=== PATIENT | female | born 1955 | race Caucasian/White ===

== ENCOUNTER 2016-10-21 10:22 | Outpatient (RCR) | payer OTHER ==
--- OUTSIDE RECORDS SUMMARY | 2016-10-07 09:34 | XMS REPORT | Continuity of Care Document ---
Author Author [facility] Organization [facility] Address Unknown Phone Unavailable Allergies Active Description Code Type Severity Reaction Onset Reported/Identified Relationship to Patient Clinical Status Yes codeine [id number] Drug Allergy Unknown N/A 01/15/2011 Yes Erythromycin Base [id number] Drug Allergy Unknown N/A 01/15/2011 Yes morphine [id number] Drug Allergy Unknown N/A 01/15/2011 Yes valdecoxib [id number] Drug Allergy Unknown N/A 01/15/2011 Yes midazolam HCl [id number] Drug Allergy Severe deep sedation 04/28/2012 Medications Problems Date Dx Coded Attending Type Code Diagnosis Diagnosed By 06/26/2014 TRINA HOYOS N Ot 205.10 06/26/2014 SOHA, BOBAN N Ot 288.60 06/26/2014 SOHA, BOBAN N Ot 403.90 06/26/2014 SOHA, BOBAN N Ot 530.81 06/26/2014 SOHA, BOBAN N Ot 585.3 06/26/2014 SOHA, BOBAN N Ot V58.69 10/04/2014 SOHA, BOBAN N Ot 205.10 10/04/2014 SOHA, BOBAN N Ot 288.60 10/04/2014 SOHA, BOBAN N Ot 403.90 10/04/2014 SOHA, BOBAN N Ot 530.81 10/04/2014 SOHA, BOBAN N Ot 585.3 10/04/2014 SOHA, BOBAN N Ot V58.69 10/07/2014 SOHA, BOBAN N Ot 205.10 10/07/2014 SOHA, BOBAN N Ot 288.60 10/07/2014 SOHA, BOBAN N Ot 403.90 10/07/2014 SOHA, BOBAN N Ot 530.81 10/07/2014 SOHA, BOBAN N Ot 585.3 10/07/2014 SOHA, BOBAN N Ot V58.69 10/07/2014 SOHA, BOBAN N Ot 205.10 10/07/2014 SOHA, BOBAN N Ot 288.60 10/07/2014 SOHA, BOBAN N Ot 403.90 10/07/2014 SOHA, BOBAN N Ot 530.81 10/07/2014 SOHA, BOBAN N Ot 585.3 10/07/2014 SOHA, BOBAN N Ot V58.69 11/07/2014 Ot 205.10 11/07/2014 Ot 288.60 11/07/2014 Ot 403.90 11/07/2014 Ot 530.81 11/07/2014 Ot 585.3 11/07/2014 Ot V58.69 11/12/2014 SOHA, BOBAN N Ot 205.10 11/12/2014 SOHA, BOBAN N Ot 288.60 11/12/2014 SOHA, BOBAN N Ot 403.90 11/12/2014 SOHA, BOBAN N Ot 530.81 11/12/2014 SOHA, BOBAN N Ot 585.3 11/12/2014 SOHA, BOBAN N Ot V58.69 11/12/2014 SOHA, BOBAN N Ot 205.10 11/12/2014 SOHA, BOBAN N Ot 288.60 11/12/2014 SOHA, BOBAN N Ot 403.90 11/12/2014 SOHA, BOBAN N Ot 530.81 11/12/2014 SOHA, BOBAN N Ot 585.3 11/12/2014 SOHA, BOBAN N Ot V58.69 01/02/2015 SOHA, BOBAN N Ot 205.10 01/02/2015 SOHA, BOBAN N Ot 288.60 01/02/2015 SOHA, BOBAN N Ot 403.90 01/02/2015 SOHA, BOBAN N Ot 530.81 01/02/2015 SOHA, BOBAN N Ot 585.3 01/02/2015 SOHA, BOBAN N Ot V58.69 04/04/2015 SOHA, BOBAN N Ot 205.10 04/04/2015 SOHA, BOBAN N Ot 288.60 04/04/2015 SOHA, BOBAN N Ot 403.90 04/04/2015 SOHA, BOBAN N Ot 530.81 04/04/2015 SOHA, BOBAN N Ot 585.3 04/04/2015 SOHA, BOBAN N Ot V58.69 05/14/2015 SOHA, TRINA N Ot 205.10 05/14/2015 SOHA, BOBAN N Ot 288.60 05/14/2015 SOHA, BOBAN N Ot 403.90 05/14/2015 SOHA, BOBAN N Ot 530.81 05/14/2015 SOHA, MIMIAN N Ot 585.3 05/14/2015 SOHATRINA N Ot V58.69 07/25/2015 ELIANE GIBBS WIRE WALKER Ot C92.10 07/25/2015 ELIANE GIBBS WIRE WALKER Ot Z79.899 08/01/2015 SOHATRINA N Ot 205.10 08/01/2015 SOHA, MIMIAN N Ot 288.60 08/01/2015 SOHA, TRINA N Ot 403.90 08/01/2015 SOHA BOBCLOVIS N Ot 530.81 08/01/2015 SOHATRINA N Ot 585.3 08/01/2015 SOHATRINA N Ot V58.69 09/05/2015 SOHA, BOBAN N Ot C92.10 09/05/2015 SOHA, BOBAN N Ot Z79.899 09/22/2015 SOHA, BOBAN N Ot C92.10 09/22/2015 SOHA, BOBAN N Ot Z79.899 09/23/2015 SOHA, BOBAN N Ot C92.10 09/23/2015 SOHA, BOBAN N Ot Z79.899 12/21/2015 SOHA, BOBAN N Ot C92.10 CHRONIC MYELOID LEUK, BCR/ABL-POSITIVE, 12/21/2015 SOHA, BOBAN N Ot Z79.899 OTHER [facility] (CURRENT) DRUG THERAPY 03/29/2016 SOHA, BOBAN N Ot C92.10 CHRONIC MYELOID LEUK, BCR/ABL-POSITIVE, 03/29/2016 SOHA, BOBAN N Ot Z79.899 OTHER COMMERCIAL SUBCONTRACTOR (CURRENT) DRUG THERAPY 03/30/2016 ALTA CARDENAS MD, Ot C92.11 CHRONIC MYELOID LEUKEMIA, BCR/ABL-POSITI 03/30/2016 ALTA CARDENAS MD Ot E78.2 MIXED HYPERLIPIDEMIA 03/30/2016 ALTA CARDENAS MD, Ot I10 ESSENTIAL (PRIMARY) HYPERTENSION 03/30/2016 RONALD GARCIA, ALTA Storm Ot R07.9 CHEST PAIN, UNSPECIFIED 04/06/2016 SOHATRINA N Ot C92.10 CHRONIC MYELOID LEUK, BCR/ABL-POSITIVE, 04/06/2016 SOHATRINA N Ot Z79.899 OTHER [facility] (CURRENT) DRUG THERAPY 07/04/2016 SOHATRINA N Ot C92.10 CHRONIC MYELOID LEUK, BCR/ABL-POSITIVE, 07/04/2016 SOHATRINA N Ot I12.9 HYPERTENSIVE CHRONIC KIDNEY DISEASE W ST 07/04/2016 SOHA BOBCLOVIS N Ot K21.9 GASTRO-ESOPHAGEAL REFLUX DISEASE WITHOUT 07/04/2016 SOHA, BOBAN N Ot N18.9 CHRONIC KIDNEY DISEASE, UNSPECIFIED 07/04/2016 SOHA BOBCLOVIS N Ot Z79.899 OTHER [facility] (CURRENT) DRUG THERAPY 07/10/2016 SOHATRINA N Ot C92.10 CHRONIC MYELOID LEUK, BCR/ABL-POSITIVE, 07/10/2016 SOHATRINA N Ot I12.9 HYPERTENSIVE CHRONIC KIDNEY DISEASE W ST 07/10/2016 SOHATRINA N Ot K21.9 GASTRO-ESOPHAGEAL REFLUX DISEASE WITHOUT 07/10/2016 SOHA BOBCLOVIS N Ot N18.9 CHRONIC KIDNEY DISEASE, UNSPECIFIED 07/10/2016 SOHA BOBCLOVIS N Ot Z79.899 OTHER [facility] (CURRENT) DRUG THERAPY Procedures Results Encounters ACCT No. Visit Date/Time Discharge Status Pt. Type Provider Facility Loc./Unit Complaint [id number] 04/22/2016 10:51:00 2015 00:01:00 DIS Outpatient TRINA HOYOS N [facility] ONC [id number] 10/08/2015 09:55:00 2015 00:01:00 DIS Outpatient SOHA TRINA N [facility] ONC [id number] 06/30/2015 09:20:00 2015 10:53:00 DIS Outpatient SOHA TRINA N [facility] ONC [id number] 07/08/2015 10:54:00 2014 23:59:59 CLS Outpatient ELIANE GIBBS [facility] ONC [id number] 04/17/2015 10:04:00 2014 00:01:00 DIS Outpatient TRINA HOYOS [facility] ONC [id number] 10/16/2014 09:50:00 2014 00:01:00 DIS Outpatient TRINA HOYOS [facility] ONC [id number] 04/17/2014 09:57:00 2013 00:01:00 DIS Outpatient TRINA HOYOS [facility] ONC [id number] 12/05/2013 10:17:00 2013 00:01:00 DIS Outpatient [id number] 12/24/2013 11:00:00 2013 23:59:59 CLS Outpatient [id number] 09/19/2013 09:51:00 2013 00:01:00 DIS Outpatient [id number] 06/13/2013 11:02:00 2012 23:59:59 CLS Outpatient [id number] 06/13/2013 09:53:00 2012 23:59:59 CLS Outpatient [id number] 03/14/2013 11:31:00 2012 00:01:00 DIS Outpatient [id number] 04/23/2013 10:38:00 2012 23:59:59 CLS Outpatient [id number] 12/06/2012 10:53:00 2012 00:01:00 DIS Outpatient [id number] 07/05/2016 00:08:00 PEN Preadmit TRINA HOYOS [facility] ONC [id number] 03/29/2016 11:48:00 ACT Outpatient RONALD GARCIA, ALTA Storm [facility] CARD CHEST PAIN SYNDROME,HTN,HLP,LEUKEMIA [id number] 10/16/2014 08:56:00 Document Registration
[2016-10-07 10:03] LABS: BASOPHILS % (AUTO) 0 % (0-10); EOSINOPHILS # (AUTO) 0.2 10^3/uL (0.0-0.3); EOSINOPHILS % (AUTO) 3 % (0-10); LYMPHOCYTES # (AUTO) 2.2 X 10^3 (1.0-4.0); LYMPHOCYTES % (AUTO) 27 % (12-44); MEAN CORPUSCULAR HEMOGLOBIN 29 PG (25-34); MEAN CORPUSCULAR HGB CONC 34 G/DL (32-36); MEAN CORPUSCULAR VOLUME 85 FL (80-99); MEAN PLATELET VOLUME 10.1 FL (7.4-10.4); MONOCYTES # (AUTO) 0.6 X 10^3 (0.0-1.0); MONOCYTES % (AUTO) 8 % (0-12); NEUTROPHILS % (AUTO) 62 % (42-75); PLATELET COUNT 228 10^3/uL (130-400); RED BLOOD COUNT 4.63 10^6/uL (4.35-5.85); RED CELL DISTRIBUTION WIDTH 14.2 % (10.0-14.5); WHITE BLOOD COUNT 8.1 10^3/uL (4.3-11.0)
[2016-10-07 10:58] LABS: ALANINE AMINOTRANSFERASE 13 U/L (0-55); ALBUMIN 4.3 G/DL (3.2-4.5); ANION GAP 10 MMOL/L (5-14); ASPARTATE AMINO TRANSFERASE 13 U/L (5-34); BILIRUBIN,TOTAL 0.8 MG/DL (0.1-1.0); BLOOD UREA NITROGEN 10 MG/DL (7-18); BUN/CREATININE RATIO 11; CALCIUM 8.9 MG/DL (8.5-10.1); CARBON DIOXIDE 25 MMOL/L (21-32); CHLORIDE 105 MMOL/L (98-107); CREATININE SERUM 0.93 MG/DL (0.60-1.30); GFR ESTIMATED > 60; GLUCOSE 130 MG/DL (70-105); LACTATE DEHYDROGENASE 202 U/L (125-220); SODIUM 140 MMOL/L (135-145); TOTAL PROTEIN 7.2 G/DL (6.4-8.2)
[2016-10-12 08:07] LABS: BCR ABL GENE QT SEE FOOTNOTE
[~2016-10-21 10:22] MED LIST: ALLP300T PO; AMLO1CAP5 PO; BUDE6HFA IH; GUAI100L2 PO; LEVO500T69 PO; LVF500T PO; NF-HYD500C PO; TOPI50TA2 PO
== END 2017-01-05 | disposition home or self-care (01) ==
LOC: ONC 10:22
PROVIDERS: ATTEND Internal Medicine Hematology & Oncology
DX: C92.10 Chronic myeloid leukemia, BCR/ABL-positive, not having achieved remission (principal); I12.9 Hypertensive chronic kidney disease with stage 1 through stage 4 chronic kidney disease, or unspecified chronic kidney disease; N18.9 Chronic kidney disease, unspecified; K21.9 Gastro-esophageal reflux disease without esophagitis; Z79.899 Other long term (current) drug therapy
CPT/HCPCS: 36415; 80053; 81206; 83615; 85025; 99213

== ENCOUNTER 2017-04-28 14:44 | Outpatient (RCR) | payer OTHER ==
[2017-04-07 11:01] LABS: BASOPHILS % (AUTO) 0 % (0-10); EOSINOPHILS # (AUTO) 0.2 10^3/uL (0.0-0.3); EOSINOPHILS % (AUTO) 3 % (0-10); LYMPHOCYTES # (AUTO) 1.9 X 10^3 (1.0-4.0); LYMPHOCYTES % (AUTO) 30 % (12-44); MEAN CORPUSCULAR HEMOGLOBIN 30 PG (25-34); MEAN CORPUSCULAR HGB CONC 34 G/DL (32-36); MEAN CORPUSCULAR VOLUME 87 FL (80-99); MEAN PLATELET VOLUME 10.4 FL (7.4-10.4); MONOCYTES # (AUTO) 0.6 X 10^3 (0.0-1.0); MONOCYTES % (AUTO) 9 % (0-12); NEUTROPHILS # (AUTO) 3.9 X 10^3 (1.8-7.8); NEUTROPHILS % (AUTO) 59 % (42-75); PLATELET COUNT 227 10^3/uL (130-400); RED BLOOD COUNT 4.41 10^6/uL (4.35-5.85); RED CELL DISTRIBUTION WIDTH 14.1 % (10.0-14.5); WHITE BLOOD COUNT 6.6 10^3/uL (4.3-11.0)
[2017-04-07 11:35] LABS: ALANINE AMINOTRANSFERASE 17 U/L (0-55); ALBUMIN 4.3 GM/DL (3.2-4.5); ANION GAP 9 MMOL/L (5-14); ASPARTATE AMINO TRANSFERASE 17 U/L (5-34); BILIRUBIN,TOTAL 0.8 MG/DL (0.1-1.0); BLOOD UREA NITROGEN 9 MG/DL (7-18); BUN/CREATININE RATIO 10; CALCIUM 9.2 MG/DL (8.5-10.1); CARBON DIOXIDE 25 MMOL/L (21-32); CHLORIDE 106 MMOL/L (98-107); CREATININE SERUM 0.87 MG/DL (0.60-1.30); GFR ESTIMATED > 60; GLUCOSE 134 MG/DL (70-105); LACTATE DEHYDROGENASE 180 U/L (125-220); POTASSIUM 3.8 MMOL/L (3.6-5.0); SODIUM 140 MMOL/L (135-145); TOTAL PROTEIN 7.3 GM/DL (6.4-8.2)
[2017-04-12 17:51] LABS: BCR ABL GENE QT See Report
== END 2017-05-14 | disposition home or self-care (01) ==
LOC: ONC 14:44
PROVIDERS: ATTEND Internal Medicine Hematology & Oncology
DX: I12.9 Hypertensive chronic kidney disease with stage 1 through stage 4 chronic kidney disease, or unspecified chronic kidney disease; C92.10 Chronic myeloid leukemia, BCR/ABL-positive, not having achieved remission; K21.9 Gastro-esophageal reflux disease without esophagitis; Z79.899 Other long term (current) drug therapy; N18.9 Chronic kidney disease, unspecified
CPT/HCPCS: 36415; 80053; 81206; 83615; 85025; 99213

== ENCOUNTER 2017-07-28 09:34 | Outpatient (RCR) | payer OTHER ==
[2017-07-14 10:03] LABS: BASOPHILS % (AUTO) 0 % (0-10); EOSINOPHILS # (AUTO) 0.2 10^3/uL (0.0-0.3); EOSINOPHILS % (AUTO) 2 % (0-10); HEMATOCRIT 40 % (35-52); HEMOGLOBIN 13.3 G/DL (11.5-16.0); LYMPHOCYTES # (AUTO) 2.1 X 10^3 (1.0-4.0); LYMPHOCYTES % (AUTO) 25 % (12-44); MEAN CORPUSCULAR HEMOGLOBIN 29 PG (25-34); MEAN CORPUSCULAR HGB CONC 33 G/DL (32-36); MEAN CORPUSCULAR VOLUME 87 FL (80-99); MEAN PLATELET VOLUME 10.5 FL (7.4-10.4); MONOCYTES # (AUTO) 0.7 X 10^3 (0.0-1.0); MONOCYTES % (AUTO) 8 % (0-12); NEUTROPHILS # (AUTO) 5.4 X 10^3 (1.8-7.8); NEUTROPHILS % (AUTO) 65 % (42-75); PLATELET COUNT 214 10^3/uL (130-400); RED BLOOD COUNT 4.58 10^6/uL (4.35-5.85); RED CELL DISTRIBUTION WIDTH 13.9 % (10.0-14.5); WHITE BLOOD COUNT 8.3 10^3/uL (4.3-11.0)
[2017-07-14 10:23] LABS: ALANINE AMINOTRANSFERASE 15 U/L (0-55); ALBUMIN 4.2 GM/DL (3.2-4.5); ALKALINE PHOSPHATASE 78 U/L (40-136); BILIRUBIN,TOTAL 0.8 MG/DL (0.1-1.0); BUN/CREATININE RATIO 13; CALCIUM 8.5 MG/DL (8.5-10.1); CARBON DIOXIDE 26 MMOL/L (21-32); CHLORIDE 104 MMOL/L (98-107); CREATININE SERUM 0.88 MG/DL (0.60-1.30); GFR ESTIMATED > 60; GLUCOSE 186 MG/DL (70-105); POTASSIUM 3.8 MMOL/L (3.6-5.0); SODIUM 138 MMOL/L (135-145)
== END 2017-10-12 | disposition home or self-care (01) ==
LOC: ONC 09:34
PROVIDERS: ATTEND Internal Medicine Hematology & Oncology
DX: C92.10 Chronic myeloid leukemia, BCR/ABL-positive, not having achieved remission (principal); I12.9 Hypertensive chronic kidney disease with stage 1 through stage 4 chronic kidney disease, or unspecified chronic kidney disease; N18.9 Chronic kidney disease, unspecified; R53.83 Other fatigue; K21.9 Gastro-esophageal reflux disease without esophagitis; Z79.899 Other long term (current) drug therapy
CPT/HCPCS: 36415; 80053; 81206; 83615; 84443; 85025; 93005; 99213

== ENCOUNTER 2017-12-01 08:49 | Outpatient (RCR) | payer OTHER ==
[2017-11-17 10:19] LABS: BASOPHILS % (AUTO) 0 % (0-10); EOSINOPHILS # (AUTO) 0.1 10^3/uL (0.0-0.3); EOSINOPHILS % (AUTO) 2 % (0-10); HEMATOCRIT 40 % (35-52); HEMOGLOBIN 13.5 G/DL (11.5-16.0); LYMPHOCYTES % (AUTO) 26 % (12-44); MEAN CORPUSCULAR HEMOGLOBIN 30 PG (25-34); MEAN CORPUSCULAR HGB CONC 34 G/DL (32-36); MEAN CORPUSCULAR VOLUME 88 FL (80-99); MEAN PLATELET VOLUME 10.3 FL (7.4-10.4); MONOCYTES # (AUTO) 0.7 X 10^3 (0.0-1.0); MONOCYTES % (AUTO) 9 % (0-12); NEUTROPHILS # (AUTO) 4.7 X 10^3 (1.8-7.8); NEUTROPHILS % (AUTO) 63 % (42-75); PLATELET COUNT 234 10^3/uL (130-400); RED CELL DISTRIBUTION WIDTH 14.3 % (10.0-14.5); WHITE BLOOD COUNT 7.4 10^3/uL (4.3-11.0)
[2017-11-17 10:49] LABS: ALANINE AMINOTRANSFERASE 15 U/L (0-55); ALBUMIN 4.4 GM/DL (3.2-4.5); ALKALINE PHOSPHATASE 76 U/L (40-136); BILIRUBIN,TOTAL 0.8 MG/DL (0.1-1.0); BUN/CREATININE RATIO 10; CALCIUM 9.2 MG/DL (8.5-10.1); CARBON DIOXIDE 26 MMOL/L (21-32); CHLORIDE 105 MMOL/L (98-107); CREATININE SERUM 0.86 MG/DL (0.60-1.30); GFR ESTIMATED > 60; GLUCOSE 157 MG/DL (70-105); POTASSIUM 3.9 MMOL/L (3.6-5.0); SODIUM 139 MMOL/L (135-145); TOTAL PROTEIN 7.2 GM/DL (6.4-8.2)
== END 2018-02-15 | disposition home or self-care (01) ==
LOC: ONC 08:49
PROVIDERS: ATTEND Internal Medicine Hematology & Oncology
DX: C92.10 Chronic myeloid leukemia, BCR/ABL-positive, not having achieved remission (principal); I12.9 Hypertensive chronic kidney disease with stage 1 through stage 4 chronic kidney disease, or unspecified chronic kidney disease; N18.9 Chronic kidney disease, unspecified; R53.83 Other fatigue; K21.9 Gastro-esophageal reflux disease without esophagitis; Z79.899 Other long term (current) drug therapy
CPT/HCPCS: 36415; 80053; 81206; 83036; 84443; 85025; 99213

== ENCOUNTER 2018-06-08 08:49 | Outpatient (RCR) | payer OTHER ==
[2018-05-25 11:05] LABS: BASOPHILS % (AUTO) 0 % (0-10); EOSINOPHILS # (AUTO) 0.2 10^3/uL (0.0-0.3); EOSINOPHILS % (AUTO) 2 % (0-10); HEMATOCRIT 41 % (35-52); HEMOGLOBIN 13.8 G/DL (11.5-16.0); LYMPHOCYTES % (AUTO) 25 % (12-44); MEAN CORPUSCULAR HEMOGLOBIN 29 PG (25-34); MEAN CORPUSCULAR HGB CONC 34 G/DL (32-36); MEAN CORPUSCULAR VOLUME 86 FL (80-99); MEAN PLATELET VOLUME 10.2 FL (7.4-10.4); MONOCYTES # (AUTO) 0.8 X 10^3 (0.0-1.0); MONOCYTES % (AUTO) 10 % (0-12); NEUTROPHILS # (AUTO) 5.2 X 10^3 (1.8-7.8); NEUTROPHILS % (AUTO) 64 % (42-75); PLATELET COUNT 249 10^3/uL (130-400); RED CELL DISTRIBUTION WIDTH 14.3 % (10.0-14.5); WHITE BLOOD COUNT 8.2 10^3/uL (4.3-11.0)
[2018-05-25 11:25] LABS: ALANINE AMINOTRANSFERASE 16 U/L (0-55); ALBUMIN 4.6 GM/DL (3.2-4.5); ALKALINE PHOSPHATASE 85 U/L (40-136); BILIRUBIN,TOTAL 0.8 MG/DL (0.1-1.0); BUN/CREATININE RATIO 10; CALCIUM 9.3 MG/DL (8.5-10.1); CARBON DIOXIDE 23 MMOL/L (21-32); CHLORIDE 106 MMOL/L (98-107); CREATININE SERUM 0.98 MG/DL (0.60-1.30); GFR ESTIMATED 58; GLUCOSE 126 MG/DL (70-105); POTASSIUM 3.9 MMOL/L (3.6-5.0); SODIUM 138 MMOL/L (135-145); TOTAL PROTEIN 7.8 GM/DL (6.4-8.2)
== END 2018-08-23 | disposition home or self-care (01) ==
LOC: ONC 08:49
PROVIDERS: ATTEND Internal Medicine Hematology & Oncology
DX: C92.10 Chronic myeloid leukemia, BCR/ABL-positive, not having achieved remission (principal); I12.9 Hypertensive chronic kidney disease with stage 1 through stage 4 chronic kidney disease, or unspecified chronic kidney disease; N18.9 Chronic kidney disease, unspecified; R53.83 Other fatigue; K21.9 Gastro-esophageal reflux disease without esophagitis; Z79.899 Other long term (current) drug therapy
CPT/HCPCS: 36415; 80053; 81206; 84443; 85025; 93005; 99213

== ENCOUNTER 2018-11-30 08:50 | Outpatient (RCR) | payer OTHER ==
[2018-11-13 09:57] LABS: BASOPHILS % (AUTO) 0 % (0-10); EOSINOPHILS # (AUTO) 0.2 10^3/uL (0.0-0.3); EOSINOPHILS % (AUTO) 3 % (0-10); HEMATOCRIT 40 % (35-52); HEMOGLOBIN 13.4 G/DL (11.5-16.0); LYMPHOCYTES % (AUTO) 27 % (12-44); MEAN CORPUSCULAR HEMOGLOBIN 29 PG (25-34); MEAN CORPUSCULAR HGB CONC 33 G/DL (32-36); MEAN CORPUSCULAR VOLUME 87 FL (80-99); MEAN PLATELET VOLUME 9.9 FL (7.4-10.4); MONOCYTES # (AUTO) 0.7 X 10^3 (0.0-1.0); MONOCYTES % (AUTO) 9 % (0-12); NEUTROPHILS # (AUTO) 4.7 X 10^3 (1.8-7.8); NEUTROPHILS % (AUTO) 62 % (42-75); PLATELET COUNT 248 10^3/uL (130-400); RED CELL DISTRIBUTION WIDTH 14.4 % (10.0-14.5); WHITE BLOOD COUNT 7.6 10^3/uL (4.3-11.0)
[2018-11-13 10:13] LABS: ALBUMIN 4.5 GM/DL (3.2-4.5); BILIRUBIN,TOTAL 0.6 MG/DL (0.1-1.0); CALCIUM 9.6 MG/DL (8.5-10.1); CREATININE SERUM 1.09 MG/DL (0.60-1.30); TOTAL PROTEIN 7.7 GM/DL (6.4-8.2)
== END 2019-02-11 | disposition home or self-care (01) ==
LOC: ONC 08:50
PROVIDERS: ATTEND Internal Medicine Hematology & Oncology
DX: C92.10 Chronic myeloid leukemia, BCR/ABL-positive, not having achieved remission (principal); I12.9 Hypertensive chronic kidney disease with stage 1 through stage 4 chronic kidney disease, or unspecified chronic kidney disease; N18.9 Chronic kidney disease, unspecified; R53.83 Other fatigue; K21.9 Gastro-esophageal reflux disease without esophagitis; Z79.899 Other long term (current) drug therapy
CPT/HCPCS: 36415; 80053; 81206; 84443; 85025; 93005; 99213

== ENCOUNTER 2019-03-29 10:23 | Outpatient (RCR) | payer OTHER ==
[2019-03-15 10:50] LABS: BASOPHILS % (AUTO) 0 % (0-10); EOSINOPHILS # (AUTO) 0.2 10^3/uL (0.0-0.3); EOSINOPHILS % (AUTO) 2 % (0-10); HEMATOCRIT 40 % (35-52); HEMOGLOBIN 13.1 G/DL (11.5-16.0); LYMPHOCYTES # (AUTO) 2.1 X 10^3 (1.0-4.0); LYMPHOCYTES % (AUTO) 25 % (12-44); MEAN CORPUSCULAR HEMOGLOBIN 29 PG (25-34); MEAN CORPUSCULAR HGB CONC 33 G/DL (32-36); MEAN CORPUSCULAR VOLUME 87 FL (80-99); MEAN PLATELET VOLUME 10.3 FL (7.4-10.4); MONOCYTES # (AUTO) 0.7 X 10^3 (0.0-1.0); MONOCYTES % (AUTO) 8 % (0-12); NEUTROPHILS # (AUTO) 5.4 X 10^3 (1.8-7.8); NEUTROPHILS % (AUTO) 65 % (42-75); PLATELET COUNT 242 10^3/uL (130-400); RED CELL DISTRIBUTION WIDTH 14.5 % (10.0-14.5); WHITE BLOOD COUNT 8.3 10^3/uL (4.3-11.0)
[2019-03-15 11:20] LABS: ALANINE AMINOTRANSFERASE 14 U/L (0-55); ALBUMIN 4.3 GM/DL (3.2-4.5); ALKALINE PHOSPHATASE 79 U/L (40-136); BILIRUBIN,TOTAL 0.7 MG/DL (0.1-1.0); BUN/CREATININE RATIO 12; CALCIUM 9.2 MG/DL (8.5-10.1); CARBON DIOXIDE 23 MMOL/L (21-32); CHLORIDE 105 MMOL/L (98-107); CREATININE SERUM 0.93 MG/DL (0.60-1.30); GFR ESTIMATED > 60; GLUCOSE 157 MG/DL (70-105); POTASSIUM 3.9 MMOL/L (3.6-5.0); SODIUM 139 MMOL/L (135-145); TOTAL PROTEIN 7.2 GM/DL (6.4-8.2)
== END 2019-06-13 | disposition home or self-care (01) ==
LOC: ONC 10:23
PROVIDERS: ATTEND Internal Medicine Hematology & Oncology
DX: C92.10 Chronic myeloid leukemia, BCR/ABL-positive, not having achieved remission (principal); I12.9 Hypertensive chronic kidney disease with stage 1 through stage 4 chronic kidney disease, or unspecified chronic kidney disease; N18.9 Chronic kidney disease, unspecified; R53.83 Other fatigue; K21.9 Gastro-esophageal reflux disease without esophagitis; Z79.899 Other long term (current) drug therapy
CPT/HCPCS: 36415; 80053; 81206; 84443; 85025; 99213

== ENCOUNTER 2019-06-28 08:49 | Outpatient (RCR) | payer OTHER ==
[2019-06-14 11:24] LABS: BASOPHILS % (AUTO) 0 % (0-10); EOSINOPHILS # (AUTO) 0.2 10^3/uL (0.0-0.3); EOSINOPHILS % (AUTO) 2 % (0-10); HEMATOCRIT 42 % (35-52); HEMOGLOBIN 13.9 G/DL (11.5-16.0); LYMPHOCYTES # (AUTO) 2.6 X 10^3 (1.0-4.0); LYMPHOCYTES % (AUTO) 28 % (12-44); MEAN CORPUSCULAR HEMOGLOBIN 29 PG (25-34); MEAN CORPUSCULAR HGB CONC 33 G/DL (32-36); MEAN CORPUSCULAR VOLUME 86 FL (80-99); MEAN PLATELET VOLUME 10.3 FL (7.4-10.4); MONOCYTES # (AUTO) 0.6 X 10^3 (0.0-1.0); MONOCYTES % (AUTO) 7 % (0-12); NEUTROPHILS # (AUTO) 5.8 X 10^3 (1.8-7.8); NEUTROPHILS % (AUTO) 63 % (42-75); PLATELET COUNT 244 10^3/uL (130-400); RED CELL DISTRIBUTION WIDTH 14.3 % (10.0-14.5); WHITE BLOOD COUNT 9.2 10^3/uL (4.3-11.0)
[2019-06-14 11:46] LABS: ALBUMIN 4.4 GM/DL (3.2-4.5); BILIRUBIN,TOTAL 0.8 MG/DL (0.1-1.0); CALCIUM 9.2 MG/DL (8.5-10.1); CREATININE SERUM 1.03 MG/DL (0.60-1.30); POTASSIUM 4.1 MMOL/L (3.6-5.0); TOTAL PROTEIN 7.6 GM/DL (6.4-8.2)
== END 2019-09-12 | disposition home or self-care (01) ==
LOC: ONC 08:49
PROVIDERS: ATTEND Internal Medicine Hematology & Oncology
DX: C92.10 Chronic myeloid leukemia, BCR/ABL-positive, not having achieved remission (principal); I12.9 Hypertensive chronic kidney disease with stage 1 through stage 4 chronic kidney disease, or unspecified chronic kidney disease; N18.9 Chronic kidney disease, unspecified; R53.83 Other fatigue; K21.9 Gastro-esophageal reflux disease without esophagitis; Z79.899 Other long term (current) drug therapy
CPT/HCPCS: 36415; 80053; 81206; 85025; 99213

== ENCOUNTER 2019-10-18 12:46 | Outpatient (RCR) | payer OTHER ==
[2019-10-02 10:55] LABS: BASOPHILS % (AUTO) 0 % (0-10); EOSINOPHILS # (AUTO) 0.2 10^3/uL (0.0-0.3); EOSINOPHILS % (AUTO) 2 % (0-10); HEMATOCRIT 42 % (35-52); HEMOGLOBIN 14.2 G/DL (11.5-16.0); LYMPHOCYTES # (AUTO) 2.3 X 10^3 (1.0-4.0); LYMPHOCYTES % (AUTO) 30 % (12-44); MEAN CORPUSCULAR HEMOGLOBIN 29 PG (25-34); MEAN CORPUSCULAR HGB CONC 34 G/DL (32-36); MEAN CORPUSCULAR VOLUME 85 FL (80-99); MEAN PLATELET VOLUME 10.4 FL (7.4-10.4); MONOCYTES # (AUTO) 0.7 X 10^3 (0.0-1.0); MONOCYTES % (AUTO) 9 % (0-12); NEUTROPHILS # (AUTO) 4.6 X 10^3 (1.8-7.8); NEUTROPHILS % (AUTO) 59 % (42-75); PLATELET COUNT 225 10^3/uL (130-400); RED CELL DISTRIBUTION WIDTH 14.8 % (10.0-14.5); WHITE BLOOD COUNT 7.8 10^3/uL (4.3-11.0)
[2019-10-02 11:12] LABS: ALANINE AMINOTRANSFERASE 18 U/L (0-55); ALBUMIN 4.4 GM/DL (3.2-4.5); ALKALINE PHOSPHATASE 90 U/L (40-136); BILIRUBIN,TOTAL 0.8 MG/DL (0.1-1.0); BUN/CREATININE RATIO 11; CARBON DIOXIDE 23 MMOL/L (21-32); CHLORIDE 107 MMOL/L (98-107); CREATININE SERUM 0.93 MG/DL (0.60-1.30); GFR ESTIMATED > 60; GLUCOSE 198 MG/DL (70-105); POTASSIUM 3.9 MMOL/L (3.6-5.0); SODIUM 139 MMOL/L (135-145); TOTAL PROTEIN 7.3 GM/DL (6.4-8.2)
== END 2019-12-31 | disposition home or self-care (01) ==
LOC: ONC 12:46
PROVIDERS: ATTEND Internal Medicine Hematology & Oncology
DX: C92.10 Chronic myeloid leukemia, BCR/ABL-positive, not having achieved remission (principal); I12.9 Hypertensive chronic kidney disease with stage 1 through stage 4 chronic kidney disease, or unspecified chronic kidney disease; N18.9 Chronic kidney disease, unspecified; R53.83 Other fatigue; K21.9 Gastro-esophageal reflux disease without esophagitis; Z79.899 Other long term (current) drug therapy
CPT/HCPCS: 80053; 83615; 85025; 88377; 99213

== ENCOUNTER 2020-04-17 12:49 | Outpatient (RCR) | payer OTHER ==
[2020-04-03 10:51] LABS: BASOPHILS % (AUTO) 0 % (0-10); EOSINOPHILS # (AUTO) 0.2 10^3/uL (0.0-0.3); EOSINOPHILS % (AUTO) 2 % (0-10); HEMATOCRIT 41 % (35-52); LYMPHOCYTES # (AUTO) 2.7 X 10^3 (1.0-4.0); LYMPHOCYTES % (AUTO) 29 % (12-44); MEAN CORPUSCULAR HEMOGLOBIN 29 PG (25-34); MEAN CORPUSCULAR HGB CONC 34 G/DL (32-36); MEAN CORPUSCULAR VOLUME 86 FL (80-99); MEAN PLATELET VOLUME 10.5 FL (7.4-10.4); MONOCYTES # (AUTO) 0.8 X 10^3 (0.0-1.0); MONOCYTES % (AUTO) 9 % (0-12); NEUTROPHILS # (AUTO) 5.5 X 10^3 (1.8-7.8); NEUTROPHILS % (AUTO) 60 % (42-75); PLATELET COUNT 248 10^3/uL (130-400); WHITE BLOOD COUNT 9.2 10^3/uL (4.3-11.0)
[2020-04-03 11:13] LABS: ALBUMIN 4.3 GM/DL (3.2-4.5); BILIRUBIN,TOTAL 0.6 MG/DL (0.1-1.0); CALCIUM 9.1 MG/DL (8.5-10.1); CREATININE SERUM 0.96 MG/DL (0.60-1.30); TOTAL PROTEIN 7.5 GM/DL (6.4-8.2)
== END 2020-07-02 | disposition home or self-care (01) ==
LOC: ONC 12:49
PROVIDERS: ATTEND Internal Medicine Hematology & Oncology
DX: C92.11 Chronic myeloid leukemia, BCR/ABL-positive, in remission (principal); I12.9 Hypertensive chronic kidney disease with stage 1 through stage 4 chronic kidney disease, or unspecified chronic kidney disease; N18.9 Chronic kidney disease, unspecified; R53.83 Other fatigue; K21.9 Gastro-esophageal reflux disease without esophagitis; E78.2 Mixed hyperlipidemia; Z79.899 Other long term (current) drug therapy
CPT/HCPCS: 80053; 81206; 83615; 85025; 99213

== ENCOUNTER 2020-08-01 05:15 | Emergency (ER) | payer OTHER, MEDICARE ==
[~2020-08-01] VITALS: Ht 165 cm; Wt 79.3 kg
[2020-08-01 05:41] LABS: BASOPHILS % (AUTO) 0 % (0-10); EOSINOPHILS # (AUTO) 0.1 10^3/uL (0.0-0.3); EOSINOPHILS % (AUTO) 1 % (0-10); HEMATOCRIT 43 % (35-52); HEMOGLOBIN 14.3 g/dL (11.5-16.0); LYMPHOCYTES # (AUTO) 2.1 10^3/uL (1.0-4.0); LYMPHOCYTES % (AUTO) 25 % (12-44); MEAN CORPUSCULAR HEMOGLOBIN 30 pg (25-34); MEAN CORPUSCULAR HGB CONC 34 g/dL (32-36); MEAN CORPUSCULAR VOLUME 88 fL (80-99); MEAN PLATELET VOLUME 10.3 fL (9.0-12.2); MONOCYTES # (AUTO) 0.7 10^3/uL (0.0-1.0); MONOCYTES % (AUTO) 8 % (0-12); NEUTROPHILS # (AUTO) 5.5 10^3/uL (1.8-7.8); NEUTROPHILS % (AUTO) 65 % (42-75); PLATELET COUNT 221 10^3/uL (130-400); WHITE BLOOD COUNT 8.5 10^3/uL (4.3-11.0)
[2020-08-01] MEDS ORDERED: LACTATED RINGERS 1,000 ML IV ONE ×2 (05:45→13:45)
[2020-08-01] MEDS ORDERED: KETOROLAC 30 MG/ML VIAL IVP ONE (05:45)
[2020-08-01] MEDS ORDERED: ORPHENADRINE 60 MG/2 ML (NORFLEX) AMP (ED ONLY) IV ONE (05:45)
[2020-08-01] MEDS ORDERED: ONDANSETRON 4 MG/2 ML (SDV) Z0FRAN IVP ONE ×2 (05:45→13:00)
[2020-08-01 05:48] LABS: ALBUMIN 4.4 GM/DL (3.2-4.5); POTASSIUM 3.9 MMOL/L (3.6-5.0)
[2020-08-01 05:51] LABS: TOTAL PROTEIN 7.4 GM/DL (6.4-8.2)
[2020-08-01 05:53] LABS: BILIRUBIN,TOTAL 0.8 MG/DL (0.1-1.0)
[2020-08-01 05:54] LABS: CREATININE SERUM 0.94 MG/DL (0.60-1.30)
[2020-08-01 05:57] LABS: MAGNESIUM 1.9 MG/DL (1.6-2.4)
[2020-08-01] MEDS ORDERED: PROMETHAZINE INJ 25 MG/ML (PHENERGAN) AMP IVP ONE ×3 (06:00→15:45)
[2020-08-01] MEDS ORDERED: PROMETHAZINE INJ 25 MG/ML (PHENERGAN) AMP ONE (06:00)
--- NOTE | 2020-08-01 06:01 | ED Headache ---
General Chief Complaint: Head/Cervical Problems Stated Complaint: HEADACHE, VOMITTING,COUGH Nursing Triage Note: HEADACHE, N/V SINCE 0200 Nursing Sepsis Screen: No Definite Risk Source: patient Exam Limitations: no limitations (ROBERT CHENG MD) History of Present Illness Date Seen by Provider: Aug 01, 2020 Time Seen by Provider: 05:23 Initial Comments This 65-year-old woman presents to the emergency room with complaints of right- sided headache that starts at the base of her neck and wraps around toward her right eye. She has had associated nausea and vomiting. She denies any fever, new cough or shortness of breath, diarrhea, Covid exposures, or other symptoms of acute infectious illness. 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 She is also recently been treated for shingles on her right lower back. (ROBERT CHENG MD) Allergies and Home Medications Allergies Coded Allergies: codeine (Unverified Allergy, Unknown, 01/15/11) erythromycin base (Unverified Allergy, Unknown, 01/15/11) morphine (Unverified Allergy, Unknown, 01/15/11) valdecoxib (Unverified Allergy, Unknown, 01/15/11) midazolam HCl (Unverified Adverse Reaction, Severe, deep sedation, 04/28/12) Home Medications Allopurinol 300 Mg Tab, 300 MG PO DAILY, (Reported) Amlodipine Besylate/Benazepril 1 Each Capsule, 1 TAB PO DAILY, (Reported) Budesonide/Formoterol Fumarate 10.2 Gm Hfa.aer.ad, 2 PUFF IH BID, (Reported) Guaifenesin 100 Mg/5 Ml Liquid, 100 MG PO TID PRN, (Reported) Hydroxyurea 500 Mg Capsule, 500 MG PO BID, (Reported) Levofloxacin 500 Mg Tab, 1 EACH PO DAILY, (Reported) Topiramate 50 Mg Tablet, 2 TAB PO BID, (Reported) Patient Home Medication List Home Medication List Reviewed: Yes (ROBERT CHENG MD) Review of Systems Review of Systems Constitutional: no symptoms reported Eyes: Denies Blurred Vision; Pain Ears, Nose, Mouth, Throat: no symptoms reported Respiratory: cough (Chronic) Cardiovascular: no symptoms reported Gastrointestinal: see HPI Genitourinary: no symptoms reported : No Musculoskeletal: other (Muscle tension in the right neck musculature) Skin: see HPI Psychiatric/Neurological: No Symptoms Reported (ROBERT CHENG MD) Past Wxmzdki-Mkdvhh-Iflnig Hx Patient Social History Alcohol Use: Denies Use Recreational Drug Use: No Smoking Status: Never a Smoker 2nd Hand Smoke Exposure: No Recent Foreign Travel: No Contact w/Someone Who Travel: No Recent Infectious Disease Expo: No Recent Hopitalizations: No (ROBERT CHENG MD) Alcohol Use: Denies Use Recreational Drug Use: No Smoking Status: Never a Smoker (CHANTEL ROONEY) Immunizations Up To Date Tetanus Booster (TDap): Unknown (ROBERT CHENG MD) Seasonal Allergies Seasonal Allergies: No (ROBERT CHENG MD) Past Medical History Surgeries: Yes (HERNIA) Appendectomy, Section Respiratory: No Cardiac: Yes Hypertension Neurological: Yes Headaches /Migraines : No CLINICAL PHARMACY TECHNICIAN History: Menopausal Genitourinary: No Gastrointestinal: No Musculoskeletal: No Endocrine: Yes Diabetes, Non-Insulin dep Cancer: Yes Leukemia (CML) Did You Recieve Any Treatments: Yes What Type of Treatment Did You: Chemotherapy Psychosocial: No Integumentary: Yes (SHINGLES) Blood Disorders: No (ROBERT CHENG MD) Physical Exam Vital Signs Vital Signs - First Documented 08/01/20 08/01/20 05:20 06:59 Temp 36.2 Pulse 86 Resp 19 B/P (MAP) 175/92 (119) Pulse Ox 97 O2 Delivery Room Air O2 Flow Rate 12.00 (CHANTEL ROONEY) Vital Signs Capillary Refill : Less Than 3 Seconds (ROBERT CHENG MD) Height, Weight, BMI Height: '" Weight: lbs. oz. kg; 29.00 BMI Method:Stated General Appearance: WD/WN, no apparent distress HEENT: PERRL/EOMI, normal ENT inspection, TMs normal, other (Mucous membranes somewhat dry) Neck: normal inspection, other (Tense right posterior cervical musculature) Cardiovascular: regular rate, rhythm, no edema, no murmur Respiratory: lungs clear, normal breath sounds, no respiratory distress, no accessory muscle use Gastrointestinal: non tender, soft Extremities: no pedal edema, pedal edema Psychiatric: alert, oriented x 3 Crainal Nerves: normal hearing, normal speech, PERRL Coordination/Gait: normal finger to nose, normal gait Motor/Sensory: no motor deficit, no sensory deficit Skin: normal color, warm/dry (ROBERT CHENG MD) Procedures/Interventions Discussed Risk,Benefits: Yes Patient Consents: Yes (Patient and verbal) Position: Lying, L3-4, Right Sterile Technique: Yes Opening Pressure: 28.5 Fluid Color: Clear Size of Disposal Tray Used: Adult (CHANTEL ROONEY) Progress/Results/Core Measures Results/Orders Lab Results Laboratory Tests Test 08/01/20 05:32 08/01/20 07:50 08/01/20 10:00 08/01/20 13:31 Range/Units White Blood Count 8.5 4.3-11.0 10^3/uL Red Blood Count 4.84 3.80-5.11 10^6/uL Hemoglobin 14.3 11.5-16.0 g/dL Hematocrit 43 35-52 % Mean Corpuscular Volume 88 80-99 fL Mean Corpuscular Hemoglobin 30 25-34 pg Mean Corpuscular Hemoglobin Concent 34 32-36 g/dL Red Cell Distribution Width 14.1 10.0-14.5 % Platelet Count 221 130-400 10^3/uL Mean Platelet Volume 10.3 9.0-12.2 fL Immature Granulocyte % (Auto) 1 % Neutrophils (%) (Auto) 65 42-75 % Lymphocytes (%) (Auto) 25 12-44 % Monocytes (%) (Auto) 8 0-12 % Eosinophils (%) (Auto) 1 0-10 % Basophils (%) (Auto) 0 0-10 % Neutrophils # (Auto) 5.5 1.8-7.8 10^3/uL Lymphocytes # (Auto) 2.1 1.0-4.0 10^3/uL Monocytes # (Auto) 0.7 0.0-1.0 10^3/uL Eosinophils # (Auto) 0.1 0.0-0.3 10^3/uL Basophils # (Auto) 0.0 0.0-0.1 10^3/uL Immature Granulocyte # (Auto) 0.1 0.0-0.1 10^3/uL Sodium Level 137 135-145 MMOL/L Potassium Level 3.9 3.6-5.0 MMOL/L Chloride Level 104 98-107 MMOL/L Carbon Dioxide Level 23 21-32 MMOL/L Anion Gap 10 5-14 MMOL/L Blood Urea Nitrogen 12 7-18 MG/DL Creatinine 0.94 0.60-1.30 MG/DL Estimat Glomerular Filtration Rate 60 BUN/Creatinine Ratio 13 Glucose Level 254 H 70-105 MG/DL Calcium Level 9.0 8.5-10.1 MG/DL Corrected Calcium 8.7 8.5-10.1 MG/DL Magnesium Level 1.9 1.6-2.4 MG/DL Total Bilirubin 0.8 0.1-1.0 MG/DL Aspartate Amino Transf (AST/SGOT) 14 5-34 U/L Alanine Aminotransferase (ALT/SGPT) 22 0-55 U/L Alkaline Phosphatase 93 40-136 U/L Total Protein 7.4 6.4-8.2 GM/DL Albumin 4.4 3.2-4.5 GM/DL Urine Color YELLOW Urine Clarity CLEAR Urine pH 8.0 5-9 Urine Specific [place] 1.020 1.016-1.022 Urine Protein NEGATIVE NEGATIVE Urine Glucose (UA) 3+ H NEGATIVE Urine Ketones TRACE H NEGATIVE Urine Nitrite NEGATIVE NEGATIVE Urine Bilirubin NEGATIVE NEGATIVE Urine Urobilinogen 0.2 < = 1.0 MG/DL Urine Leukocyte Esterase NEGATIVE NEGATIVE Urine RBC (Auto) NEGATIVE NEGATIVE Urine RBC NONE /HPF Urine WBC 0-2 /HPF Urine Squamous Epithelial Cells 2-5 /HPF Urine Crystals NONE /LPF Urine Bacteria NEGATIVE /HPF Urine Casts NONE /LPF Urine Mucus NEGATIVE /LPF Urine Culture Indicated NO CSF Tube Number 3 CSF Appearance CLEAR CSF Color COLORLESS CSF WBC 2 0-5 CELLS CSF RBC 233 H 0-0 CELLS CSF Lymphocytes % CSF Mononuclear WBCs % CSF Polynuclear WBCs % CSF Glucose 121 H 50-80 MG/DL CSF Total Protein 39 15-40 MG/DL Coronavirus 2018 (KASIE) Negative Negative Test 08/01/20 14:13 Range/Units Glucometer 224 H 70-110 MG/DL (CHANTEL ROONEY) Micro Results Microbiology 08/01/20 Influenza Types A,B Antigen (ENMANUEL) - Final, Complete 08/01/20 Gram Stain - Final, Resulted 08/01/20 CSF Culture, Resulted Pending (CHANTEL ROONEY) My Orders Orders - CHANTEL ROONEY O2 (08/01/20 06:58) Lidocaine 4% 5 Ml (Xylocaine 4%) (08/01/20 07:15) Hydromorphone Injection (Dilaudid Inject (08/01/20 07:45) Ua Culture If Indicated (08/01/20 07:43) Promethazine Injection (Phenergan Injec (08/01/20 08:00) Csf Cell Count (08/01/20 10:14) Csf Glucose (08/01/20 10:14) Csf Total Protein (08/01/20 10:14) Csf Culture (08/01/20 10:14) Hsv 1&2 Pcr (Csf/Fluid) (08/01/20 10:14) Valacyclovir Tablet (Valtrex Tablet) (08/01/20 13:00) Acetaminophen Tablet (Tylenol Tablet) (08/01/20 13:00) Ondansetron Injection (Zofran Injectio (08/01/20 13:00) Covid 19 Inhouse Test (08/01/20 13:15) Ct Angio Head/Neck (08/01/20 13:15) Iohexol Injection (Omnipaque 350 Mg/Ml 1 (08/01/20 13:30) Received Contrast (Hold Metformin- Contr (08/01/20 13:30) Sodium Chloride Flush (Catheter Flush Sy (08/01/20 13:30) Ns (Ivpb) (Sodium Chloride 0.9% Ivpb Bag (08/01/20 13:30) Influenza A And B Antigens (08/01/20 13:24) Ed Iv/Invasive Line Start (08/01/20 13:36) Lactated Ringers (Lr 1000 Ml Iv Solution (08/01/20 13:45) Accucheck Stat ONCE (08/01/20 13:36) Misc Lab (08/01/20 10:00) Ketamine Syringe (Ed Only) (Ketamine Syr (08/01/20 15:45) Promethazine Injection (Phenergan Injec (08/01/20 15:45) Fentanyl Injection (Sublimaze Injection (08/01/20 15:45) Diphenhydramine Injection (Benadryl Inje (08/01/20 15:45) (CHANTEL ROONEY) Medications Given in ED Current Medications Medications Dose Ordered Sig/Ben Route Start Time Stop Time Status Last Admin Dose Admin Acetaminophen 1,000 mg ONCE ONCE PO 08/01/20 13:00 08/01/20 13:01 DC 08/01/20 13:34 1,000 MG Diphenhydramine HCl 25 mg ONCE ONCE IVP 08/01/20 07:00 08/01/20 07:01 AK 08/01/20 07:03 25 MG Diphenhydramine HCl 25 mg ONCE ONCE IVP 08/01/20 15:45 08/01/20 15:46 AK 08/01/20 15:48 25 MG Fentanyl Citrate 50 mcg ONCE ONCE IVP 08/01/20 06:15 08/01/20 06:24 DC 08/01/20 06:24 50 MCG Fentanyl Citrate 75 mcg ONCE ONCE IVP 08/01/20 15:45 08/01/20 15:46 AK 08/01/20 15:47 75 MCG Hydromorphone HCl 1 mg ONCE ONCE IV 08/01/20 07:45 08/01/20 07:46 AK 08/01/20 07:55 1 MG Iohexol 75 ml ONCE ONCE IV 08/01/20 13:30 08/01/20 13:31 AK 08/01/20 13:56 75 ML Ketorolac Tromethamine 15 mg ONCE ONCE IVP 08/01/20 05:45 08/01/20 05:46 AK 08/01/20 05:40 15 MG Lactated Ringer's 1,000 ml @ 0 mls/hr Q0M ONCE IV 08/01/20 05:45 08/01/20 05:46 AK 08/01/20 05:39 999 MLS/HR Lactated Ringer's 1,000 ml @ 0 mls/hr Q0M ONCE IV 08/01/20 13:45 08/01/20 13:46 AK 08/01/20 14:13 1,000 MLS/HR Lidocaine HCl 5 ml ONCE ONCE TOP 08/01/20 07:15 08/01/20 07:16 AK 08/01/20 07:59 1 ML Ondansetron HCl 8 mg ONCE ONCE IVP 08/01/20 05:45 08/01/20 05:46 AK 08/01/20 05:40 8 MG Ondansetron HCl 8 mg ONCE ONCE IVP 08/01/20 13:00 08/01/20 13:01 DC 08/01/20 13:09 8 MG Orphenadrine Citrate 60 mg ONCE ONCE IV 08/01/20 05:45 08/01/20 05:46 DC 08/01/20 05:40 60 MG Promethazine HCl 25 mg ONCE ONCE IVP 08/01/20 06:00 08/01/20 06:03 DC 08/01/20 06:04 25 MG Promethazine HCl 25 mg ONCE ONCE IVP 08/01/20 08:00 08/01/20 08:01 DC 08/01/20 07:53 25 MG Promethazine HCl 25 mg ONCE ONCE IVP 08/01/20 15:45 08/01/20 15:46 DC 08/01/20 15:48 25 MG Sodium Chloride 100 ml ONCE ONCE IV 08/01/20 13:30 08/01/20 13:31 DC 08/01/20 13:56 80 ML Valacyclovir HCl 1,000 mg ONCE ONCE PO 08/01/20 13:00 08/01/20 13:01 DC 08/01/20 13:34 1,000 MG (CHANTEL ROONEY) Vital Signs/I&O 08/01/20 08/01/20 08/01/20 05:20 06:59 15:53 Temp 36.2 Pulse 86 85 Resp 19 15 B/P (MAP) 175/92 (119) 157/87 (119) Pulse Ox 97 97 97 O2 Delivery Room Air OxyMask OxyMask O2 Flow Rate 12.00 2.00 (CHANTEL ROONEY) Blood Pressure Mean: 119 Progress Progress Note #1: Time: 06:01 Progress Note Patient has received Toradol, Norflex, and Zofran. A liter of IV fluids is infusing. She reports her nausea is nearly resolved but her headache is still intense. We are going to add some Phenergan to her IV fluids. We will continue to monitor and adjust treatment accordingly. Labs that have reported appear unremarkable. Progress Note #2: Time: 06:15 Progress Note Due to the unusual nature of her pain, atypical headache for her, and no improvement with current treatments, we will obtain a CT of the head. Fentanyl will be given prior to moving her to radiology. No neurologic deficits were identified on exam. (ROBERT CHENG MD) Progress Note #1: Time: 07:01 Progress Note Patient states her headache still persist. We reviewed her history and she has hypertension but no coronary or other ischemic disease she is aware of. She is being treated for CML. She has never had triptans before. We have discussed their use and she is okay with the risk of using them. Were going to trial oxygen for 15 minutes first and if that does not work we will try triptans. We are giving her some Benadryl to see if that helps with her headache as well. If we can find some 4% lidocaine will apply it to her right nostril. Progress Note #2: Time: 09:20 Progress Note Patient was complaining of still 10 out of 10 headache so he gave her a milligram of Dilaudid as well as some lidocaine up her nostril. She said neither one of these helped her pain but it did narcotize her and she had slow respiratory rate under 10 so we used a nasal trumpet and bagged her for about 20 to 30 minutes. She is awake, answering questions appropriately and still claims her pain is a 9-1/2 out of 10. Suspicion for possible subarachnoid hemorrhage has grown with her opioid resistant headache. She may just be having a cluster headache however we discussed with her the case so far and with the patient doing a lumbar puncture and they are both okay with it. Were going to wait till she is a little more awake and alert to have her sign consent. Donna nt is comfortable with end-tidal CO2 monitoring at 35, oxygen saturation 100% sleeping softly and easily arousable. Progress Note #3: Time: 10:12 Progress Note Differential for increased ICP in this case could be increased production, decreased absorption, edema, pseudotumor cerebri etc. Plan to get some CSF studies including herpes. She did recently have shingles. Progress Note #4: Time: 12:39 Progress Note Patient now rates her pain as a 5 out of 10. Suspect with the increased intracranial pressure she may be having a viral meningitis so we did a herpes PCR on her CSF. She did have ipsilateral shingles earlier. We will put her on valacyclovir. She is comfortable so we are going to let her go home and sleep. Communicated our findings with her . Progress Note #5: Time: 14:50 Progress Note After consultation was made with [facility] neurology, Dr. Uysal he recommends CT angiogram, brain MRI if possible, VZV PCR, West Nile virus, broad-spectrum viral panel, Enterococcus, cryptococcus, Coccidioides. These orders were put in and sent out. A brain MRI was not obtained because the patient is a 15-year-old spinal stimulator in her back and we do not have any documentation for it locally. Spoke to the and he also does not have documentation. The patient and wanted to stay local if possible. We discussed the case with Dr. Smith who came down and visited with the patient and explained that she did not feel that this was within her ability to adequately care for locally. They have agreed to go to . (CHANTEL ROONEY) Diagnostic Imaging Diagonstic Imaging: CT Plain Films/CT/US/NM/MRI: head Comments [facility]. [place], [place] NAME: NEFTALI DOUGLAS [facility] REC#: [id number] PT STATUS: REG ER : 1955 PHYSICIAN: ROBERT CHENG MD ADMIT DATE: 08/01/20/ER Signed Date of Exam:08/01/20 CT HEAD WO PROCEDURE: CT head without contrast. TECHNIQUE: Multiple contiguous axial images were obtained through the brain without the use of intravenous contrast. Auto Exposure Controls were utilized during the CT exam to meet ALARA standards for radiation dose reduction. INDICATION: Headache, nausea vomiting The ventricles are normal in size, shape and position. There are no masses or hemorrhages. There are no extra-axial fluid collections. IMPRESSION: Negative CT head Dictated by: Dictated on workstation # [id number] Dict: 08/01/20645 Trans: 08/01/20646 [id number] Interpreted by: MASHA LOZANO MD Electronically signed by: MASHA LOZANO MD 08/01/20646 Reviewed: Reviewed by Me (CHANTEL ROONEY) Consults : Consulting Physician: CELIA REYNOLDS MD Consults Notes Discussed the case with oncology and she suggests that we hold chemotherapy for 2 weeks from the time symptoms resolved. (CHANTEL ROONEY) Departure Impression Primary Impression: Headache Qualified Codes: R51 - Headache Additional Impressions: Viral meningitis, unspecified Encephalopathy acute Increased intracranial pressure Disposition: 02 XFER SHT-TRM HOSP Condition: Stable Transfer Transfer Reason: Exceeds level of care Time Spoke to Accepting Phy: 13:00 Transfer Progress Notes Discussed the case with Dr. Orellana and he agrees to accept the patient onto the neurology floor. He agrees with valacyclovir 1 g 3 times daily. Bed assignment was made at [address] [place] [address]. Transfer Facility: [facility] Method of Transfer: EMS (CHANTEL ROONEY) Departure-Patient Inst. Referrals: FREDIS CONNOLLY MD (PCP/Family) Primary Care Physician ROBERT CHENG MD Aug 01, 2020 06:01 CHANTEL ROONEY Aug 01, 2020 07:03
[2020-08-01] MEDS ORDERED: fentaNYL INJECTION 100 MCG/2 ML AMP IVP ONE ×2 (06:15→15:45)
[2020-08-01] MEDS ORDERED: fentaNYL INJECTION 100 MCG/2 ML AMP ONE (06:20)
--- NOTE | 2020-08-01 06:48 | Diagnostic Imaging Report ---
PROCEDURE: CT head without contrast. TECHNIQUE: Multiple contiguous axial images were obtained through the brain without the use of intravenous contrast. Auto Exposure Controls were utilized during the CT exam to meet ALARA standards for radiation dose reduction. INDICATION: Headache, nausea vomiting The ventricles are normal in size, shape and position. There are no masses or hemorrhages. There are no extra-axial fluid collections. IMPRESSION: Negative CT head Dictated by: Dictated on workstation # [id number]
[2020-08-01] MEDS ORDERED: diphenhydrAMINE 50 MG/ML INJ (BENADRYL) IVP ONE ×2 (07:00→15:45)
[2020-08-01] MEDS ORDERED: LIDOCAINE 4% INJ (XYLOCAINE) 5ML AMP TOP ONE (07:15)
[2020-08-01] MEDS ORDERED: HYDROmorphone 2 MG/ML VIAL (DILAUDID) IV ONE (07:45)
[2020-08-01 07:56] LABS: BILIRUBIN,URINE NEGATIVE (NEGATIVE); CLARITY,URINE CLEAR; COLOR,URINE YELLOW; GLUCOSE, URINE (UA) 3+ (NEGATIVE); KETONES,URINE TRACE (NEGATIVE); LEUKOCYTE ESTERASE ,URINE NEGATIVE (NEGATIVE); NITRITE,URINE NEGATIVE (NEGATIVE); PROTEIN,URINE NEGATIVE (NEGATIVE)
--- NOTE | 2020-08-01 08:05 | NUR ---
PT RESTING W EYE CLOSED, O2 SAT 100%. RR 10, PT AWAKENS EASILY, CONT TO CO OF FARRELL, THEN BACK TO SLEEP ECO2 MONITOR ON PT READS 20. CONT TO MONITOR PT AT BEDSIDE. DR ROONEY NOTIFED, PT CONT TO AWAKEN W STIMULATION. NASAL AIR WAY INSERTED, AMBU USED TO KEEP RR 10-14/MIN AND KEEP ECO2 UP TO ABOVE 35.
[2020-08-01 08:06] LABS: BACTERIA,URINE NEGATIVE /HPF; WBC,URINE 0-2 /HPF
--- NOTE | 2020-08-01 09:45 | NUR ---
NOTIFIED BY DR ROONEY AND CONSENTED TO LUMBAR PUNCTURE. PT CONT TO CO OF FARRELL. PT REPOSTIONED ON SIDE
--- NOTE | 2020-08-01 09:59 | NUR ---
LUMBAR PUNCTURE DONE BY DR ROONEY,OPENING PRESSURE 28.5. 4 SPECIMENS SENT TO LAB
[2020-08-01 10:43] LABS: CSF GLUCOSE 121 MG/DL (50-80); CSF TOTAL PROTEIN 39 MG/DL (15-40)
[2020-08-01 11:19] LABS: APPEARANCE,CSF CLEAR; COLOR,CSF COLORLESS; RED BLOOD CELL,CSF 233 CELLS (0-0)
[2020-08-01 11:20] LABS: CSF TUBE NUMBER 3; WHITE BLOOD CELL,CSF 2 CELLS (0-5)
--- NOTE | 2020-08-01 11:45 | NUR ---
PT AWAKEN EASILY, PT RATES FARRELL 12/22 @ THIS X
--- NOTE | 2020-08-01 12:51 | NUR ---
PT UP TO VOID WITH ASSISTANCE. PT CO OF NAUSEA, FARRELL, AND DIZZINESS
[2020-08-01] MEDS ORDERED: VALACYCLOVIR 500 MG TAB (VALTREX) PO ONE (13:00)
[2020-08-01] MEDS ORDERED: ACETAMINOPHEN 500 MG TAB (TYLENOL) PO ONE (13:00)
--- NOTE | 2020-08-01 13:00 | NUR ---
PT CO OF NAUSEA REPORTED TO DR. MIN TO HAVE FARRELL 04/24
[2020-08-01] MEDS ORDERED: HOLD METFORMIN - RECEIVED CONTRAST 20 ML VIAL IV SCH (13:30)
[2020-08-01] MEDS ORDERED: CATHETER FLUSH 10 ML SYR IV PRN (13:30)
[2020-08-01] MEDS ORDERED: NS 100 ML (IVPB) BAG IV ONE (13:30)
[2020-08-01] MEDS ORDERED: IOHEXOL 350 MG/ML 100 ML (OMNIPAQUE 350) VIAL IV ONE (13:30)
--- NOTE | 2020-08-01 13:31 | NUR ---
RAPID COVID AND FLU SWAB DONE
--- NOTE | 2020-08-01 14:50 | NUR ---
PT TO CT ANGIO
--- NOTE | 2020-08-01 14:59 | Diagnostic Imaging Report ---
PROCEDURE: CT angiography of the head and CT angiography of the neck with and without contrast. TECHNIQUE: Contiguous noncontrast images were obtained from the skull base through the vertex. After intravenous contrast administration, helical CT angiography of the neck was performed. Source data was reformatted into 3D MIP projections. Delayed post contrast acquisition was also obtained. Auto Exposure Controls were utilized during the CT exam to meet ALARA standards for radiation dose reduction. INDICATION: Encephalopathy. FINDINGS: Delayed post contrast images are unremarkable for abnormal enhancement. There is a three-vessel branching pattern to the aortic arch. Both common carotid arteries are widely patent. Carotid bifurcations are unremarkable. Internal carotid arteries appear to be patent. There is mild calcified plaque in the carotid siphons bilaterally. The anterior, middle, and posterior cerebral arteries appear to be widely patent bilaterally. No stenosis or thromboembolism is identified. No definite aneurysm is identified. The basilar artery is patent. Left vertebral artery is dominant. Right vertebral artery is very small and appears to terminate at PICA. IMPRESSION: Unremarkable CT angiogram of the head and neck. Dictated by: Dictated on workstation # [id number]
--- NOTE | 2020-08-01 15:09 | NUR ---
PT BEING TRANSFERRED TO AFTER SPEAKING W DR ROONEY AND DR PATIÑO.
--- NOTE | 2020-08-01 15:20 | NUR ---
CONSENT FOR TRANSFER SIGNED BY PT. WANTS TO KNOW IF IT WAS OK W HER , EXPLAINED TO PT THAT DR PATIÑO SPOKE WITH HIM ON PHONE CO TRANSFER AND HE WAS IN AGREEMENT
[2020-08-01] MEDS ORDERED: KETAMINE/NaCl 50 MG/5 ML SYRINGE (ED ONLY) IV ONE (15:45)
[2020-08-01 15:53] VITALS: BP 157/87
--- NOTE | 2020-08-01 15:59 | NUR ---
CALLED [facility] REQUESTED WHEN PT TRANSPORTED
--- NOTE | 2020-08-01 17:52 | NUR ---
REPORT TO BERNARDA MADDOX AT , HAVE BEEN WAITING FOR STAFF TO CALL BACK FOR REPORT
[2020-08-04 15:47] LABS: MISC LAB TEST & RESULT VZ AB IGG IGM CSF
== END 2020-08-01 15:59 | disposition short-term general hospital (02) ==
LOC: EDUNIT# 05:15 → ER 05:17
DX: R51.9 Headache, unspecified (principal); A87.9 Viral meningitis, unspecified; G93.40 Encephalopathy, unspecified; G93.2 Benign intracranial hypertension; I10 Essential (primary) hypertension; Z85.6 Personal history of leukemia; Z88.5 Allergy status to narcotic agent; Z88.1 Allergy status to other antibiotic agents; Z88.8 Allergy status to other drugs, medicaments and biological substances; Z20.828 Contact with and (suspected) exposure to other viral communicable diseases
CPT/HCPCS: 70450; 70496; 70498; 80053; 81000; 82945; 82962; 83735; 84157; 85025; 87070; 87205; 87529; 87804; 89051; 99285; U0002; 36415; 86788; 86789; 87498; 87631; 87635; 96361; 96374; 96375; 96376

== ENCOUNTER 2020-10-16 12:56 | Outpatient (RCR) | payer OTHER, MEDICARE ==
[2020-10-06 10:04] LABS: BASOPHILS % (AUTO) 0 % (0-10); EOSINOPHILS # (AUTO) 0.2 10^3/uL (0.0-0.3); EOSINOPHILS % (AUTO) 2 % (0-10); HEMATOCRIT 43 % (35-52); HEMOGLOBIN 14.1 g/dL (11.5-16.0); LYMPHOCYTES # (AUTO) 2.7 10^3/uL (1.0-4.0); LYMPHOCYTES % (AUTO) 25 % (12-44); MEAN CORPUSCULAR HEMOGLOBIN 30 pg (25-34); MEAN CORPUSCULAR HGB CONC 33 g/dL (32-36); MEAN CORPUSCULAR VOLUME 89 fL (80-99); MEAN PLATELET VOLUME 10.5 fL (9.0-12.2); MONOCYTES # (AUTO) 0.8 10^3/uL (0.0-1.0); MONOCYTES % (AUTO) 8 % (0-12); NEUTROPHILS # (AUTO) 6.9 10^3/uL (1.8-7.8); NEUTROPHILS % (AUTO) 65 % (42-75); PLATELET COUNT 266 10^3/uL (130-400); WHITE BLOOD COUNT 10.6 10^3/uL (4.3-11.0)
[2020-10-06 10:22] LABS: ALBUMIN 4.4 GM/DL (3.2-4.5); BILIRUBIN,TOTAL 0.7 MG/DL (0.1-1.0); CALCIUM 9.2 MG/DL (8.5-10.1); CREATININE SERUM 0.96 MG/DL (0.60-1.30); TOTAL PROTEIN 7.5 GM/DL (6.4-8.2)
== END 2021-01-04 | disposition home or self-care (01) ==
LOC: ONC 12:56
PROVIDERS: ATTEND Internal Medicine Hematology & Oncology
DX: C92.11 Chronic myeloid leukemia, BCR/ABL-positive, in remission (principal); I12.9 Hypertensive chronic kidney disease with stage 1 through stage 4 chronic kidney disease, or unspecified chronic kidney disease; N18.30 Chronic kidney disease, stage 3 unspecified; K21.9 Gastro-esophageal reflux disease without esophagitis; E78.2 Mixed hyperlipidemia; G89.29 Other chronic pain; M54.9 Dorsalgia, unspecified; E66.9 Obesity, unspecified; Z79.899 Other long term (current) drug therapy; Z82.49 Family history of ischemic heart disease and other diseases of the circulatory system
CPT/HCPCS: 80053; 81206; 83615; 85025; 99213

== ENCOUNTER 2021-04-30 12:59 | Outpatient (RCR) | payer MEDICARE, OTHER ==
[2021-04-16 09:35] LABS: BASOPHILS # (AUTO) 0.1 10^3/uL (0.0-0.1); BASOPHILS % (AUTO) 1 % (0-10); EOSINOPHILS # (AUTO) 0.2 10^3/uL (0.0-0.3); EOSINOPHILS % (AUTO) 2 % (0-10); HEMATOCRIT 44 % (35-52); HEMOGLOBIN 14.3 g/dL (11.5-16.0); LYMPHOCYTES # (AUTO) 2.7 10^3/uL (1.0-4.0); LYMPHOCYTES % (AUTO) 30 % (12-44); MEAN CORPUSCULAR HEMOGLOBIN 29 pg (25-34); MEAN CORPUSCULAR HGB CONC 32 g/dL (32-36); MEAN CORPUSCULAR VOLUME 90 fL (80-99); MEAN PLATELET VOLUME 10.9 fL (9.0-12.2); MONOCYTES # (AUTO) 0.7 10^3/uL (0.0-1.0); MONOCYTES % (AUTO) 8 % (0-12); NEUTROPHILS # (AUTO) 5.3 10^3/uL (1.8-7.8); NEUTROPHILS % (AUTO) 59 % (42-75); PLATELET COUNT 250 10^3/uL (130-400)
[2021-04-16 09:56] LABS: ALBUMIN 4.2 GM/DL (3.2-4.5); BILIRUBIN,TOTAL 0.8 MG/DL (0.1-1.0); CALCIUM 9.5 MG/DL (8.5-10.1); CREATININE SERUM 0.98 MG/DL (0.60-1.30); TOTAL PROTEIN 7.3 GM/DL (6.4-8.2)
== END 2021-07-15 | disposition home or self-care (01) ==
LOC: ONC 12:59
PROVIDERS: ATTEND Internal Medicine Hematology & Oncology
DX: C92.11 Chronic myeloid leukemia, BCR/ABL-positive, in remission (principal); I12.9 Hypertensive chronic kidney disease with stage 1 through stage 4 chronic kidney disease, or unspecified chronic kidney disease; N18.30 Chronic kidney disease, stage 3 unspecified; K21.9 Gastro-esophageal reflux disease without esophagitis; E78.2 Mixed hyperlipidemia; E66.9 Obesity, unspecified; R73.01 Impaired fasting glucose; Z79.899 Other long term (current) drug therapy; Z82.49 Family history of ischemic heart disease and other diseases of the circulatory system
CPT/HCPCS: 80053; 81206; 83615; 85025; 99213

== ENCOUNTER → 2021-10-22 | Outpatient (CLI) | payer MEDICARE | LOC: CARD 13:30 | PROVIDERS: ATTEND Internal Medicine Cardiovascular Disease | DX: I11.9 Hypertensive heart disease without heart failure (principal); I35.8 Other nonrheumatic aortic valve disorders | CPT/HCPCS: 93306 ==

== ENCOUNTER → 2022-06-18 | Outpatient (CLI) | payer MEDICARE ==
[~2022-06-18] MED LIST changes: +CATHETER FLUSH 10 ML SYR IV PRN; +HOLD METFORMIN - RECEIVED CONTRAST 20 ML VIAL IV SCH; +IOHEXOL 350 MG/ML 100 ML (OMNIPAQUE 350) VIAL IV ONE; +NS 100 ML (IVPB) BAG IV ONE
[2022-06-18 15:03] LABS: CREATININE SERUM 1.2 MG/DL (0.60-1.30)
--- NOTE | 2022-06-18 15:57 | Diagnostic Imaging Report ---
EXAMINATION: CT angiography of the chest. TECHNIQUE: Contrast enhanced thin section helical images were obtained through the chest with intravenous contrast timed for the optimal opacification of the arterial structures per CTA protocol. Post-processing, reconstructions and interpretation of angiographic images of the vessels was performed. 3D MIP reconstructions were performed and reviewed. All CT scans use one or more of the following dose optimizing techniques: automated exposure control, MA and/or KvP adjustment based on a patient size and exam type, or iterative reconstruction. HISTORY: Aortic aneurysm. COMPARISON: None available. FINDINGS: Maximal size of the ascending aorta is 3.5 x 3.5 cm. The aortic root measures 3.6 x 3.7 x 3.7 cm from commissure to cusp. The arch and descending aorta is normal. There is no pulmonary embolism. There is no edema or pneumonia. No pleural effusion. No pneumothorax. No suspicious nodules. There is no axillary or supraclavicular lymphadenopathy. There is no mediastinal lymphadenopathy. Heart size is normal. There are no coronary artery calcifications. No pericardial effusion. Aorta is normal in caliber. Limited views of the upper abdomen show steatosis of the liver. There are stones in the gallbladder. There are no suspicious osseus lesions. IMPRESSION: Normal caliber ascending aorta. Dictated by: Dictated on workstation # [id number]
== END ==
LOC: RAD 15:15
PROVIDERS: ATTEND Internal Medicine Cardiovascular Disease
DX: I71.20 Thoracic aortic aneurysm, without rupture, unspecified (principal)
CPT/HCPCS: 36415; 71275; 82565; 84520

== ENCOUNTER → 2022-06-18 | Outpatient (CLI) | payer MEDICARE ==
[~2022-06-18] MED LIST changes: -CATHETER FLUSH 10 ML SYR IV PRN; -HOLD METFORMIN - RECEIVED CONTRAST 20 ML VIAL IV SCH; -IOHEXOL 350 MG/ML 100 ML (OMNIPAQUE 350) VIAL IV ONE; -NS 100 ML (IVPB) BAG IV ONE
--- NOTE | 2022-06-21 19:54 | Diagnostic Imaging Report ---
3-D bilateral screening mammogram with CAD. COMPARISON: There are no prior studies available for comparison. There are no current complaints. FINDINGS: The fibroglandular tissue in both breasts is heterogeneously dense. This does limit the sensitivity of this exam. There is no primary or secondary sign of malignancy noted. IMPRESSION: 1. There is no evidence of malignancy. 2. The patient should have her annual bilateral screening mammogram on schedule in June 2023. ACR BI-RADS Category 1: Negative. Result letter will be mailed to the patient. Note: At least 10% of breast cancer is not imaged by mammography. Dictated by: Dictated on workstation # [id number]
== END ==
LOC: RAD 14:18
PROVIDERS: ATTEND Internal Medicine
DX: Z12.31 Encounter for screening mammogram for malignant neoplasm of breast (principal)
CPT/HCPCS: 77063; 77067

== ENCOUNTER → 2023-04-14 | Outpatient (CLI) | payer MEDICARE, OTHER ==
--- NOTE | 2023-04-14 17:19 | Diagnostic Imaging Report ---
EXAMINATION: Chest 2 view HISTORY: Cough. COMPARISON: 06/18/2022. FINDINGS: The lung volumes are normal. No focal consolidation is seen. No large pleural effusion or pneumothorax is seen. The cardiomediastinal silhouette is normal in size and contour. No acute osseous abnormality is seen. Spinal cord stimulator is seen overlying the thoracic spine. IMPRESSION: 1. No acute pleuroparenchymal process. Dictated by: Dictated on workstation # [id number]
== END ==
LOC: RAD 16:56
PROVIDERS: ATTEND Internal Medicine
DX: M79.2 Neuralgia and neuritis, unspecified (principal); I12.9 Hypertensive chronic kidney disease with stage 1 through stage 4 chronic kidney disease, or unspecified chronic kidney disease; N18.2 Chronic kidney disease, stage 2 (mild); R05.8 Other specified cough
CPT/HCPCS: 71046

== ENCOUNTER → 2023-05-26 | Outpatient (CLI) | payer MEDICARE ==
--- NOTE | 2023-05-26 08:40 | Diagnostic Imaging Report ---
PROCEDURE: CT thoracic and lumbar spine without contrast. TECHNIQUE: Multiple contiguous axial images were obtained through the thoracic and lumbar spine without the use of intravenous contrast. Sagittal and coronal reformations were then performed. All CT scans use one or more of the following dose optimizing techniques: automated exposure control, MA and/or KvP adjustment based on a patient size and exam type, or iterative reconstruction. INDICATION: Post spinal stimulator lead placement. COMPARISON: None. FINDINGS: Spinal stimulator leads entering the epidural space at T11-T12. The right lead terminates at the level of T6 and the left terminates at the level of T9. No apparent high-density fluid within the spinal canal. Multilevel degenerative changes of the lumbar spine with multilevel disc height loss. The vertebral body heights are maintained. No acute fracture or dislocation of the thoracic or lumbar spine. The thoracic spine alignment is normal. The lumbar spine demonstrates a dextroconvex curvature with mild right lateral listhesis of L4 and L5. Moderate to severe spinal canal stenosis at L3-L4, L4-L5 and moderate spinal canal stenosis at L5-S1. There is a asymmetric right lateral recess and moderate to severe right foraminal stenosis at L5-S1. There is also moderate spinal canal stenosis at L1-L2 and The visualized soft tissues are normal. The visualized lungs are normal. IMPRESSION: Spinal stimulator leads entering the epidural space at T11-T12. The right lead terminates at the level of T6 and the left terminates at the level of T9. No apparent high-density fluid within the spinal canal. I do not see any areas of lead fracture but I do not see the proximal end of the leads and I do not see the spinal stimulator unit. There is multilevel spinal canal stenosis with moderate to severe spinal canal stenosis at L3-L4 and L4-L5 and moderate spinal canal stenosis at L1-L2 and L5-S1. There is also asymmetric moderate to severe right lateral recess stenosis right foraminal stenosis at L5-S1. Dictated by: Dictated on workstation # [id number]
== END ==
LOC: RAD 07:44
PROVIDERS: ATTEND Internal Medicine
DX: Z45.42 Encounter for adjustment and management of neurostimulator (principal); M48.061 Spinal stenosis, lumbar region without neurogenic claudication; M48.07 Spinal stenosis, lumbosacral region
CPT/HCPCS: 72128; 72131